=== PATIENT | female | born 1955 | race Caucasian/White ===

== ENCOUNTER → 2016-09-20 | Outpatient (CLI) | payer MEDICARE ==
[~2016-09-20] MED LIST: CRESTOR5 MG PO; CYCLOBENZAPRINE5 MG PO; FERROUS SULFAT325 M2 PO; FLUOXETINE HCL10 MG PO; HUMALOG100 UNIT/2 SQ; LISINOPRIL10 MG PO; MIRALAX17 GM PO; MUCINEX600 MG PO; NEURONTIN 400400 MG PO; PERCOCET 5-3251 EACH PO; PLAVIX 75 MG TA75 MG PO; RESTORIL15 MG PO; VALIUM 5 MG TAB5 MG PO; VITAMIN D2000 UNI1 PO; ZANAFLEX2 MG PO; ZITHROMAX250 MG PO
== END ==
LOC: EMI 13:00
DX: M54.12 Radiculopathy, cervical region (principal); M50.222 Other cervical disc displacement at C5-C6 level; M50.223 Other cervical disc displacement at C6-C7 level; M99.71 Connective tissue and disc stenosis of intervertebral foramina of cervical region
CPT/HCPCS: 72141

== ENCOUNTER → 2020-05-27 | Outpatient (CLI) | payer MEDICARE, OTHER ==
[~2020-05-27] MED LIST changes: +COZAAR50 MG PO; -CYCLOBENZAPRINE5 MG PO; +ECOTRIN81 MG PO; +FLEXERIL 10 MG10 MG PO; -FLUOXETINE HCL10 MG PO; +ISOSORBIDE MONO30 MG PO; +LANTUS100 UNIT/1 SQ; +LYRICA150 MG PO; +NAPROSYN500 MG PO; +NEURONTIN 300300 MG PO; +NITROFURANTOIN50 MG PO; +NORCO 10-325 T1 EACH PO; +NORCO 5-325 TA1 EACH PO; +NORCO 7.5-3251 EACH PO; +NOVOLOG 10100 UNITS1 INJ; +NOVOLOG100 UNIT/1 SQ; +PROZAC40 MG PO; +TRESIBA100 UNIT/1 SC; +XYLOCAINE 5% OI35 GM TOP; +ZANTAC150 MG PO; +ZOFRAN4 MG PO
== END ==
LOC: KOH-I 16:24
DX: M54.2 Cervicalgia (principal); M47.812 Spondylosis without myelopathy or radiculopathy, cervical region; M25.78 Osteophyte, vertebrae; M48.02 Spinal stenosis, cervical region; Z98.1 Arthrodesis status
CPT/HCPCS: 72050

== ENCOUNTER → 2020-07-28 | Outpatient (CLI) | payer MEDICARE, OTHER | LOC: EMI 14:53 | DX: M54.12 Radiculopathy, cervical region (principal); R53.1 Weakness; M79.642 Pain in left hand; M43.22 Fusion of spine, cervical region; M43.12 Spondylolisthesis, cervical region; M48.02 Spinal stenosis, cervical region; E07.9 Disorder of thyroid, unspecified | CPT/HCPCS: 72141 ==